=== PATIENT | female | born 1960 | race Two or more races ===

== ENCOUNTER 2023-08-19 08:36 | Observation (INO) | payer BC, OTHER ==
[2023-08-19] MEDS ORDERED: ACETAMINOPHEN INJECTION 100 ML IVPB ONE (09:33)
[2023-08-19] MEDS ORDERED: METOCLOPRAMIDE HCL INJECTION 10 MG/2 ML VIAL ONE (09:33)
[2023-08-19] MEDS: SODIUM CHLORIDE 0.9% 500 ML INFUS.BAG IV ONE (10:01)
[2023-08-19] MEDS: ACETAMINOPHEN 1000 MG/100 ML BAG IVPB ONE (10:03)
[2023-08-19] MEDS: METOCLOPRAMIDE HCL INJECTION 10 MG/2 ML VIAL IVPUSH ONE (10:03)
[2023-08-19 10:20] LABS: EOS % 2.2 % (0-4.5); HEMATOCRIT 38.6 % (32.4-45.2); HEMOGLOBIN 13.2 GM/dL (10.7-15.3); LYMPH % 30.5 % (8-40); MCH 31.6 pg (25.7-33.7); MCHC 34.3 g/dl (32.0-36.0); MEAN PLT VOLUME 8.1 fl (7.5-11.1); MONO % 8.2 % (3.8-10.2); NEUT % 58.1 % (42.8-82.8); PLATELET COUNT 203 10^3/uL (134-434); RBC 4.19 M/mm3 (3.60-5.2); RDW 12.1 % (11.6-15.6); WHITE BLOOD COUNT 4.4 K/mm3 (4.0-10.0)
[2023-08-19 10:24] LABS: INR 1.09 (0.83-1.09); PROTHROMBIN TIME (PATIENT) 12.6 SEC (9.7-13.0)
[2023-08-19 10:27] LABS: ACTIVATED PTT 34.5 SECONDS (25.2-36.5)
[2023-08-19 10:39] LABS: POTASSIUM 3.9 mmol/L (3.5-5.1)
[2023-08-19 10:44] LABS: CALCIUM 8.8 mg/dL (8.5-10.1)
[2023-08-19 10:45] LABS: ALBUMIN 3.7 g/dl (3.4-5.0)
[2023-08-19 10:46] LABS: BLOOD UREA NITROGEN 16.8 mg/dL (7-18)
[2023-08-19 10:47] LABS: CREATININE 0.6 mg/dL (0.55-1.3)
[2023-08-19 10:49] LABS: TOT PROT 6.9 g/dl (6.4-8.2)
[2023-08-19 10:50] LABS: BILIRUBIN,TOTAL 0.6 mg/dL (0.2-1)
[2023-08-19 10:51] LABS: PH,URINE 7.5 (5.0-8.0); URINE APPEARANCE CLEAR; URINE BILIRUBIN NEGATIVE (NEGATIVE); URINE COLOR YELLOW; URINE GLUCOSE (UA) NEGATIVE (NEGATIVE); URINE KETONE NEGATIVE (NEGATIVE); URINE LEUK ESTERASE NEGATIVE (NEGATIVE); URINE NITRITE NEGATIVE (NEGATIVE); URINE PROTEIN NEGATIVE (NEGATIVE); URINE UROBILINOGEN 0.2 mg/dL (0.2-1.0)
[2023-08-19] MEDS ORDERED: hydrALAZINE HCL 20 MG/ML VIAL ONE (12:13)
[2023-08-19] MEDS: hydrALAZINE HCL 20 MG/ML VIAL IVPUSH ONE (12:19)
[2023-08-19] MEDS ORDERED: ACETAMINOPHEN 325 MG TABLET (FP) PO PRN (14:23)
[2023-08-19] MEDS ORDERED: hydrALAZINE HCL 20 MG/ML VIAL IVPUSH PRN (14:25)
[2023-08-19] MEDS: NIFEdipine E.R. 30 MG TABLET PO SCH (16:47)
[2023-08-19] MEDS ORDERED: NIFEdipine E.R. 30 MG TABLET PO ONE (16:47)
[2023-08-19] MEDS ORDERED: ACETAMINOPHEN/CAFFEINE/BUTALBITAL 1 TAB ONE (21:10)
[2023-08-19] MEDS: ACETAMINOPHEN/CAFFEINE/BUTALBITAL 1 TAB PO PRN (21:12)
[2023-08-20 04:56] VITALS: BMI 29.1
[2023-08-20 07:27] LABS: HEMATOCRIT 40.3 % (32.4-45.2); MCH 31.9 pg (25.7-33.7); MCHC 34.8 g/dl (32.0-36.0); MEAN CELL VOLUME 91.7 fl (80-96); MEAN PLT VOLUME 7.9 fl (7.5-11.1); PLATELET COUNT 220 10^3/uL (134-434); RBC 4.39 M/mm3 (3.60-5.2); RDW 12.3 % (11.6-15.6); WHITE BLOOD COUNT 4.8 K/mm3 (4.0-10.0)
[2023-08-20 07:42] LABS: POTASSIUM 3.7 mmol/L (3.5-5.1)
[2023-08-20 07:51] LABS: CALCIUM 9.3 mg/dL (8.5-10.1)
[2023-08-20 07:52] LABS: ALBUMIN 3.9 g/dl (3.4-5.0); BLOOD UREA NITROGEN 14.1 mg/dL (7-18); MAGNESIUM 2.2 mg/dL (1.8-2.4)
[2023-08-20 07:54] LABS: CREATININE 0.6 mg/dL (0.55-1.3)
[2023-08-20 07:56] LABS: BILIRUBIN,TOTAL 0.9 mg/dL (0.2-1); TOT PROT 7.7 g/dl (6.4-8.2)
[2023-08-20] MEDS: LOSARTAN POTASSIUM 25 MG TABLET PO SCH (09:06)
[2023-08-20 15:10] VITALS: BP 126/78; PULSE 62; RESP 16; TEMP 97.1
== END 2023-08-20 16:00 | disposition home or self-care (01) ==
LOC: JER 08:36 → JERBED 11:59 → J4W 08-20 04:25
PROVIDERS: ADMIT Internal Medicine; ATTEND Internal Medicine
PROC: 3E033NZ Introduction of Analgesics, Hypnotics, Sedatives into Peripheral Vein, Percutaneous Approach (ICD-10-PCS; principal; 2023-08-19)
PROC: 3E033GC Introduction of Other Therapeutic Substance into Peripheral Vein, Percutaneous Approach (ICD-10-PCS; 2023-08-19)
PROC: 3E0337Z Introduction of Electrolytic and Water Balance Substance into Peripheral Vein, Percutaneous Approach (ICD-10-PCS; 2023-08-19)
DX: I16.1 Hypertensive emergency (principal); R51.9 Headache, unspecified; R00.8 Other abnormalities of heart beat; Z91.041 Radiographic dye allergy status; Z88.8 Allergy status to other drugs, medicaments and biological substances
CPT/HCPCS: 36415; 70450-TC; 70551-TC; 71045-TC-FY; 80053; 80061; 81003; 82550; 82553; 82962; 83036; 83735; 84100; 84443; 84484; 85025; 85027; 85610; 85651; 85730; 86850; 86900; 86901; 93005; 93010; 93306-TC; 97116-GP; 97162-GP; 99285-25; G0378; J0131